=== PATIENT | male | born 1980 | race Two or more races ===

== ENCOUNTER 2021-12-05 11:38 | Day surgery (SDC) | payer OTHER ==
[~2021-12-05] VITALS: Ht 185.4 cm; Wt 115.7 kg
[2021-12-05] MEDS ORDERED: IOHEXOL-350 100 ML VIAL IV ONE (13:29)
[2021-12-05] MEDS ORDERED: METOPROLOL TARTRATE INJ 5 MG/5 ML AMPUL ONE ×4 (13:54→14:29)
[2021-12-05] MEDS ORDERED: NITROGLYCERIN 0.4 MG/TAB BOTTLE ONE (13:54)
[2021-12-05] MEDS: METOPROLOL TARTRATE INJ 5 MG/5 ML AMPUL IVP PRN ×10 (13:57→14:42)
[2021-12-05] MEDS ORDERED: NITROGLYCERIN 0.4 MG/TAB BOTTLE SL ONE (14:00)
[2021-12-05] MEDS ORDERED: IV NS 0.9% 500 ML IV ONE (14:00)
[2021-12-05 14:43] VITALS: BP 105/54
== END 2021-12-05 23:59 | disposition short-term general hospital (02) ==
LOC: CT 11:38
PROVIDERS: ATTEND Internal Medicine Interventional Cardiology
DX: R07.9 Chest pain, unspecified (principal)
CPT/HCPCS: 75574; J3490 ×4; Q9967